=== PATIENT | female | born 1955 | race African-American/Black ===

== ENCOUNTER → 2022-08-14 | Day surgery (SDC) | payer MEDICARE, OTHER ==
[2022-08-11 15:44] LABS: BASOPHILS % 0.5 % (0.0-1.0); EOSINOPHILS % 0.7 % (0.0-6.0); HEMATOCRIT 44.3 % (34.2-44.1); HEMOGLOBIN 13.8 g/dL (12.0-16.0); LYMPHOCYTES # (AUTO) 2.1 (1.0-3.2); LYMPHOCYTES % 37.8 % (18.0-39.1); MEAN CORPUSCULAR HEMOGLOBIN 30.9 pg (28-32); MEAN CORPUSCULAR HGB CONC 31.2 g/dL (31-35); MEAN CORPUSCULAR VOLUME 99.1 fL (81-99); MONOCYTES # (AUTO) 0.4 (0.2-0.8); MONOCYTES % 7.7 % (4.4-11.3); NEUTROPHILS # (AUTO) 2.9 (2.1-6.9); NEUTROPHILS % 53.1 % (38.7-80.0); PLATELET COUNT 563 x10e3/uL (140-360); RED BLOOD COUNT 4.47 x10e6/uL (3.6-5.1); RED CELL DISTRIBUTION WIDTH 11.6 % (11.7-14.4)
[~2022-08-14] MED LIST: B12; BENICAR20 MG PO; BUPIVACAINE HCL 0.5% 10ML MPF VIAL INJ ONE; CRESTOR10 MG PO; LEVODOPA25 GM PO; LIDOCAINE HCL 1% 30ML-PF VIAL ONE; LIDOCAINE HCL 2% LOCAL INJ 5 ML SDV VIAL INJ ONE; METHYLPREDNISOLONE ACETATE 80 MG/ML VIAL ONE; OMEGA 3 1,0001 EACH PO; POVIDONE IODINE 0.05% 0.05 % ML PO ONE; PROPOFOL IV EMULSION 10 MG/ML 20 ML VIAL ONE; TYLENOL #3 PO; VITAMIN C1000 MG PO; VITAMIN D31 GM; ZINC
[2022-08-14 07:50] VITALS: BP 128/60
== END | disposition home or self-care (01) ==
LOC: OR 06:45
PROVIDERS: ATTEND Orthopaedic Surgery
DX: M94.251 Chondromalacia, right hip (principal); I10 Essential (primary) hypertension; G20 Parkinson's disease; E78.5 Hyperlipidemia, unspecified; Z88.0 Allergy status to penicillin; Z01.810 Encounter for preprocedural cardiovascular examination; Z01.812 Encounter for preprocedural laboratory examination; Z01.818 Encounter for other preprocedural examination; Z79.899 Other long term (current) drug therapy
CPT/HCPCS: 20610 ×2; 36415; 71046; 77002; 85025; 93005; J1040; J2001 ×2; J2704; 76000